=== PATIENT | female | born 1945 | race Caucasian/White ===

== ENCOUNTER 2017-01-17 16:45 | Emergency (ER) | payer OTHER, MEDICARE ==
[2017-01-17 17:35] VITALS: BP 179/92; PULSE 69; RESP 18; TEMP 99.1; O2SAT 99
[2017-01-17 17:47] LABS: COLOR YELLOW; LEUKOCYTE ESTERASE,URINE TRACE (NEGATIVE); NITRITE,URINE NEGATIVE (NEGATIVE)
[2017-01-17 17:55] LABS: BACTERIA 1+ /hpf (NONE SEEN); MUCUS TRACE /lpf (NONE-1+); RBC,URINE 50-182 /hpf (0-3)
[2017-01-17] MEDS ORDERED: CEPHALEXIN 500MG PREPACK#4 BTL TAKEHOME ONE (18:10)
--- NOTE | 2017-01-17 18:12 | UCPHY ---
H & P Time Seen by Provider: 01/17/17 17:46 Patient Type: Established HPI/ROS: HPI Urinary complaints, sore throat, congestion. 71-year-old female by private vehicle. This patient complains of increased frequency with urination and dysuria for the last 1-2 days. She also complains of a sore throat with nasal congestion and clear rhinorrhea. She reports the symptoms have been going on for the last 1-2 days. She reports she has been grieving. She has had a in the family and she has been under some motion all stress and feels that she has gotten herself worn down. No fever. No other complaints. ROS: Constitutional: No fever, no chills. No weakness. Eyes: No discharge. No changes in vision. ENT: As above. Respiratory: No cough. No shortness of breath. Cardiac: No chest pain, no palpitations. Gastrointestinal: No abdominal pain, no vomiting, no diarrhea. Genitourinary: No hematuria. As above. Musculoskeletal: No back pain. No neck pain. No myalgias or arthralgias. Skin: No rashes. Neurological: No headache. No focal weakness or altered sensation. Past medical history: ADD, hypertension, depression, hysterectomy, right knee replacement. Social history: Here by herself. Nonsmoker. Physical Exam: General Appearance: Alert, no distress. This patient is responding to questions appropriately and in full sentences. This patient appears well- hydrated and well-nourished. Eyes: Pupils equal and round no pallor or injection. No lid edema, erythema or injection. ENT, Mouth: Mucous membranes are moist. The pharyngeal tissues are unremarkable. No edema or swelling. No asymmetry suggestive of abscess. No erythema or exudates. Respiratory: There are no retractions, lungs are clear to auscultation with good air movement bilaterally. Cardiovascular: Regular rate and rhythm. No murmur. Gastrointestinal: Abdomen is soft and nontender, no masses, bowel sounds normal. No focal tenderness at McBurney's point. No Sahu sign. Neurological: Motor sensory function is grossly intact. Cranial nerves are normal. Gait is normal. Skin: Warm and dry, no rashes. Musculoskeletal: Neck is supple and nontender. No CVA tenderness on palpation. Extremities are symmetrical. All joints range without pain or impingement. Psychiatric: No agitation. No depression. Database: Rapid strep-negative. EKG: Imaging: Procedures: Emergency department course: Urinalysis and rapid strep assays discussed with the patient. Diagnosis of urinary tract infection as well as viral upper respiratory infection discussed. Medication allergies reviewed. She was started on Keflex at urgent care. I will prescribe her 500 mg of Keflex to be taken 4 times daily for the next 5 days for treatment of urinary tract infection. Upper respiratory infection supportive care and ibuprofen dosing discussed with her. She feels comfortable going home and I feel she is safe for discharge. Her vital signs have been reviewed and are normal except for moderate hypertension. Follow-up and return to Urgent Care precautions reviewed. All of her questions were answered. She was discharged in good condition. Differential Diagnosis: The differential diagnosis on this patient includes but is not limited to urinary tract infection, upper respiratory infection, viral pharyngitis. Serious bacterial infection, streptococcal pharyngitis unlikely. This represents a partial list of diagnoses considered. These considerations are based on history, physical exam, past history, reassessment and diagnostic testing. Smoking Status: Never smoked Constitutional: Initial Vital Signs Temperature (C) 37.3 C 01/17/17 17:31 Heart Rate 69 01/17/17 17:31 Respiratory Rate 18 01/17/17 17:31 Blood Pressure 179/92 H 01/17/17 17:31 O2 Sat (%) 99 01/17/17 17:31 Allergies/Adverse Reactions: Sulfa (Sulfonamide Antibiotics) Allergy (Verified 01/17/17 17:29) Home Medications: Medication Instructions Recorded Amphet Asp and D/Amphet [Adderall 01/17/17 10 MG (*)] Cephalexin [Keflex (*)] 500 mg PO Q6 5 Days 01/17/17 Citalopram [CeleXA 20 MG] 01/17/17 Losartan/Hydrochlorothiazide 01/17/17 [Losartan-Hctz 100-25 mg Tab] Melatonin [Melatonin 3 MG (*)] 01/17/17 Metoprolol Succinate 01/17/17 Omeprazole 01/17/17 Medical Decision Making - Data Points Laboratory Results: 01/17/17 01/17/17 01/17/17 Unknown 17:40 17:40 Urine Color YELLOW Urine Appearance CLOUDY Urine pH 7.0 (5.0-7.5) Ur Specific Craig 1.015 (1.002-1.030) Urine Protein NEGATIVE (NEGATIVE) Urine Ketones NEGATIVE (NEGATIVE) Urine Blood 3+ H (NEGATIVE) Urine Nitrate NEGATIVE (NEGATIVE) Urine Bilirubin NEGATIVE (NEGATIVE) Urine Urobilinogen 0.2 EU EU (0.2-1.0) Ur Leukocyte Esterase TRACE H (NEGATIVE) Urine RBC 50-182 /hpf H /hpf (0-3) Urine WBC 3-5 /hpf H /hpf (0-3) Ur Epithelial Cells TRACE /lpf /lpf (NONE-1+) Urine Bacteria 1+ /hpf H /hpf (NONE SEEN) Urine Mucus TRACE /lpf /lpf (NONE-1+) Ur Culture Indicated? INDICATED H (NI) Urine Glucose NEGATIVE (NEGATIVE) Group A Strep Screen NEGATIVE (NEGATIVE) Group A Strep DNA Pending Departure - Departure Disposition: Home, Routine, Self-Care Clinical Impression: Upper respiratory infection, Urinary tract infection Condition: Good Instructions: Upper Respiratory Infection (ED), Urinary Tract Infection in Women (ED) Additional Instructions: Read and follow provided instructions. Follow-up with your primary care physician in 1-2 days for re-evaluation without fail. Ibuprofen dosin mg every 6 hours with meals for the next 3 days only. Take antibiotic as prescribed her entire course of treatment. Keflex, 500 mg: Take 1 capsule every 6 hours for treatment of urinary tract infection. Return to the emergency department for worsening symptoms or other serious concerns. Referrals: NONE *PRIMARY CARE P,. [Primary Care Provider] - As per Instructions Prescriptions: Cephalexin [Keflex (*)] 500 mg PO Q6 5 Days - PQRS PQRS Measurement: 134: Depression screening and followup, PRIME MD-PHQ2 (12 years and older) Over the last 2 weeks, how often have you been bothered by any of the following problems? 1. Feeling down, depressed, or hopeless? 2. Little interest or pleasure in doing things? Answered no to both questions. 130: Documentation of medications. Reviewed all patient medications, doses, route and frequency. 226: Do you smoke? No. 47: 65 and older: Advanced care planning. Patient designates surrogate decision maker as family. 51: 18 years old and older with diagnosis of COPD, spirometry performance. NA 52: 18 years old and older with COPD and symptoms of COPD or FEV1<60% predicted prescribed a B Agonist. NA
[2017-01-17] MEDS ORDERED: PHENAZOPYRIDINE HCL 200 MG TAB ONE (18:15)
== END 2017-01-17 18:36 | disposition home or self-care (01) ==
LOC: CED 16:45
DX: N39.0 Urinary tract infection, site not specified (principal); J06.9 Acute upper respiratory infection, unspecified; I10 Essential (primary) hypertension; Z96.652 Presence of left artificial knee joint
CPT/HCPCS: 81003-PO; 81015-PO; 87880-PO; 99214-PO; G0463-PO

== ENCOUNTER → 2017-04-14 | Outpatient (CLI) | payer OTHER, MEDICARE | LOC: CIMAGING 12:59 | PROVIDERS: ATTEND Family Medicine Geriatric Medicine | DX: M79.644 Pain in right finger(s) (principal) | CPT/HCPCS: 73130-PO ==